=== PATIENT | male | born 1945 | race Caucasian/White ===

== ENCOUNTER 2018-07-24 07:57 | Day surgery (SDC) | payer MEDICARE, OTHER ==
[~2018-07-24 07:57] MED LIST: BRIMONIDINE 0.2% OPHTH DROPS 5 ML ONE; BSS/LIDOCAINE/EPINEPHRINE 1 ML SYRINGE ONE; EPINEPHrine 1 MG/ML AMP ONE; TIMOLOL 0.5% OPHTH DROPS ONE; TRIAMCIN/MOXIFLOX OPHTHALMIC 0.6 ML VIAL IO ONE; VANCOMYCIN OPHTHALMI 8MG/0.8ML 8 MG/0.8 ML SYRINGE IO ONE
[2018-07-24] MEDS ORDERED: KETOROLAC 0.45% OPHTH DROPS ONE (08:05)
[2018-07-24] MEDS ORDERED: PROPARACAINE 0.5% OPHTH DROPS 15 ML ONE (08:06)
[2018-07-24] MEDS: PHENYLEPHRINE 2.5% OPHTH 2 ML DROPS ONE ×3 (08:06→08:20)
[2018-07-24] MEDS: CYCLOPENTOLATE 1% OPHTH DROPS 2 ML ONE ×3 (08:07→08:21)
--- NOTE | 2018-07-24 08:58 | ANESTHESIA ---
Pre-Anesthesia VS, & Labs - Diagnosis senile combined cataract right eye - Procedure cataract extraction with intraocular lens implant right eye Vital Signs: Temp Pulse Resp BP Pulse Ox 36.1 C L 68 14 175/106 H 98 07/24/18 08:05 07/24/18 08:05 07/24/18 08:05 07/24/18 08:05 07/24/18 08:05 Height 5 ft 10 in Weight (kg) 164.7 kg - NPO >8 hours Last Fluid Intake: 0600 H2O Home Medications and Allergies Home Medications: Ambulatory Orders Aspirin [Aspirin EC] 81 mg PO DAILY 07/23/18 Cholecalciferol (Vitamin D3) [Vitamin D] 2,000 unit PO DAILY 07/23/18 Docusate Sodium 100 mg PO BID 07/23/18 Fluticasone/Salmeterol [Advair 250-50 Diskus] 1 each IH BID 07/23/18 Gluc Sanchez Dipo Ch/Martínez Sanchez/C/Wyatt [Glucosamine-Chondroitin Capsul] 1 each PO DAILY 07/23/18 Magnesium 250 mg PO QPM 07/23/18 Multivitamin [Multivitamins] 1 each PO DAILY 07/23/18 Zinc Gluconate [Zinc] 30 mg PO QPM 07/23/18 Carvedilol [Coreg] 12.5 mg PO BID 05/25/13 Losartan [Cozaar] 50 mg PO DAILY 05/25/13 Rosuvastatin Calcium [Crestor] 5 mg PO QPM 05/25/13 Aspirin [Aspirin EC] 81 mg PO DAILY 07/23/18 Cholecalciferol (Vitamin D3) [Vitamin D] 2,000 unit PO DAILY 07/23/18 Docusate Sodium 100 mg PO BID 07/23/18 Fluticasone/Salmeterol [Advair 250-50 Diskus] 1 each IH BID 07/23/18 Gluc Sanchez Dipo Ch/Martínez Sanchez/C/Wyatt [Glucosamine-Chondroitin Capsul] 1 each PO DAILY 07/23/18 Magnesium 250 mg PO QPM 07/23/18 Multivitamin [Multivitamins] 1 each PO DAILY 07/23/18 Zinc Gluconate [Zinc] 30 mg PO QPM 07/23/18 Allergies/Adverse Reactions: Allergies Allergy/AdvReac Type Severity Reaction Status Date / Time CHUCK Inhibitors AdvReac cough Verified 07/23/18 11:39 simvastatin AdvReac muscle Verified 07/23/18 11:40 cramps Anes History & Medical History - Anesthetic History Anesthesia Complications: reports: No previous complications - Medical History Cardiovascular: reports: Hypertension, [place] Pulmonary: reports: Asthma, COPD, Sleep apnea, CPAP use Gastrointestinal: reports: None, Other (super morbid obesity) Urinary: reports: None Neuro: reports: None Musculoskeletal: reports: Osteoarthritis, Chronic back pain Endocrine/Autoimmune: reports: None Skin: reports: Eczema Smoking Status: Former smoker (Quit age 30) Psychosocial: reports: No issues indicated - Surgical History General: Cholecystectomy Eyes Ears Nose Throat (EENT): Tonsil/Adenoidectomy Cardiothoracic: Coronary stent Exam General: Alert, Oriented x3, Cooperative, No acute distress Dental: Poor dentition Mouth Openin Fingerbreadth Neck Mobility: Normal Mallampati classification: II Thyromental Distance: 4-6 cm Respiratory: Lungs clear, Normal breath sounds, No respiratory distress, No accessory muscle use Cardiovascular: Regular rate, Normal S1, Normal S2, No murmurs Mental/Cognitive Status: Alert/Oriented X3, Normal for patient Plan Anesthesia Type: MAC Consent for Procedure(s) Verified and Reviewed: Yes Code Status: Attempt Resuscitation ASA classification: 3-Severe systemic disease Is this case an emergency?: No
[2018-07-24] MEDS ORDERED: LACTATED RINGERS 500 ML IV ONE (09:14)
[2018-07-24] MEDS ORDERED: BRIMONIDINE 0.2% OPHTH DROPS 5 ML OPTH ONE (09:40)
[2018-07-24] MEDS ORDERED: CHONDR SULF/HYALURONATE SYRINGE IO ONE (09:40)
[2018-07-24] MEDS ORDERED: TIMOLOL 0.5% OPHTH DROPS OPTH ONE (09:40)
[2018-07-24] MEDS ORDERED: EPINEPHrine 1 MG/ML AMP IVP ONE (09:40)
[2018-07-24] MEDS ORDERED: TRIAMCIN/MOXIFLOX OPHTHALMIC 0.6 ML VIAL IO ONE (09:40)
[2018-07-24] MEDS ORDERED: VANCOMYCIN OPHTHALMI 8MG/0.8ML 8 MG/0.8 ML SYRINGE IO ONE (09:40)
[2018-07-24] MEDS ORDERED: MIDAZOLAM 2 MG/2 ML VIAL IVP ONE (09:45)
[2018-07-24] MEDS ORDERED: PROPARACAINE 0.5% OPHTH DROPS 15 ML RIGHTEYE ONE (09:55)
[2018-07-24] MEDS ORDERED: BSS/LIDOCAINE/EPINEPHRINE 1 ML SYRINGE IO ONE (09:55)
--- NOTE | 2018-07-24 10:11 | OPERATIVE REPORT ---
DATE OF SERVICE: 07/24/2018 Physician: Shaquille Hannon MD PREOPERATIVE DIAGNOSIS: Visually significant cataract, right eye. This was his first cataract surgery. POSTOPERATIVE DIAGNOSIS: Visually significant cataract, right eye. PROCEDURE: Phacoemulsification with posterior chamber intraocular lens implant, right eye. SURGEON: Dr. Shaquille Hannon. ANESTHESIA: Monitored anesthesia care. COMPLICATIONS: None. OPERATIVE INDICATIONS: This is a 72-year-old man with progressive vision loss in the right eye due t o 2+ nuclear sclerotic and 2 to 3+ posterior subcapsular cataract. Best corrected visual acuity was 20/25 with glare to 20/70 in the right eye. Indications for surgery were difficulty seeing words on a computer screen, difficulty reading small print, difficulty driving in low light or at night, and d ifficulty driving at night because of headlights from other vehicles and/or street lights. He was co nsented at length concerning the risks and benefits of cataract surgery, after which he expressed a d esire to proceed with surgery. OPERATIVE PROCEDURE: Patient was taken into OR #3 and placed under monitored anesthesia care. A marck gical timeout was conducted confirming correct patient, correct procedure, and correct surgical site. He was given topical anesthesia, then prepped and draped in the usual sterile fashion. The eye was entered at the 12 and 9-o'clock positions. Intracameral Shugarcaine was injected into th e anterior chamber, followed by Viscoat. A continuous-tear curvilinear capsulorrhexis was performed. The nucleus was hydrodissected and phacoemulsified. The cortex was evacuated using automated infus ion and aspiration. Provisc was injected in the capsular bag, and an 18.5-diopter intraocular lens i nserted in the bag. Approximately 0.8 mL of a mixture of triamcinolone, moxifloxacin and vancomycin was injected subconjunctivally in the superior quadrant for infection and inflammation prophylaxis. I and A was used to evacuate the viscoelastic materials. The eye was inflated to physiologic pressur e using a balanced salt solution and found to be watertight. Patient was taken from the operating ro om in good condition and given postop instructions. TD: 07/24/2018 10:01
[2018-07-24 10:17] VITALS: BP 143/80
== END 2018-07-24 07:58 | disposition home or self-care (01) ==
LOC: SDS 07:57
PROVIDERS: ATTEND Ophthalmology
PROC: 08RJ3JZ Replacement of Right Lens with Synthetic Substitute, Percutaneous Approach (ICD-10-PCS; principal; 2018-07-24 09:00)
DX: H25.811 Combined forms of age-related cataract, right eye (principal); I10 Essential (primary) hypertension; J44.9 Chronic obstructive pulmonary disease, unspecified; G47.33 Obstructive sleep apnea (adult) (pediatric); E66.01 Morbid (severe) obesity due to excess calories; H34.8112 Central retinal vein occlusion, right eye, stable; H02.836 Dermatochalasis of left eye, unspecified eyelid; H02.833 Dermatochalasis of right eye, unspecified eyelid; G89.29 Other chronic pain; M19.90 Unspecified osteoarthritis, unspecified site; M54.9 Dorsalgia, unspecified; H02.431 Paralytic ptosis of right eyelid; Z79.82 Long term (current) use of aspirin; I25.2 Old myocardial infarction; Z87.891 Personal history of nicotine dependence
CPT/HCPCS: 66984; A9270; J3490; J7120; V2632

== ENCOUNTER 2018-09-25 09:42 | Day surgery (SDC) | payer MEDICARE, OTHER ==
[~2018-09-25 09:42] MED LIST changes: -BRIMONIDINE 0.2% OPHTH DROPS 5 ML ONE; -BSS/LIDOCAINE/EPINEPHRINE 1 ML SYRINGE ONE; +CYCLOPENTOLATE 1% OPHTH DROPS 2 ML ONE; -EPINEPHrine 1 MG/ML AMP ONE; +KETOROLAC 0.45% OPHTH DROPS ONE; +PHENYLEPHRINE 2.5% OPHTH 2 ML DROPS ONE; +PROPARACAINE 0.5% OPHTH DROPS 15 ML ONE; -TIMOLOL 0.5% OPHTH DROPS ONE; -TRIAMCIN/MOXIFLOX OPHTHALMIC 0.6 ML VIAL IO ONE; -VANCOMYCIN OPHTHALMI 8MG/0.8ML 8 MG/0.8 ML SYRINGE IO ONE
[2018-09-25] MEDS ORDERED: LACTATED RINGERS 1,000 ML IV ONE (09:59)
[2018-09-25] MEDS ORDERED: KETOROLAC 0.45% OPHTH DROPS LEFTEYE ONE (10:15)
[2018-09-25] MEDS ORDERED: CYCLOPENTOLATE 1% OPHTH DROPS 2 ML LEFTEYE ONE (10:15)
[2018-09-25] MEDS ORDERED: PROPARACAINE 0.5% OPHTH DROPS 15 ML LEFTEYE ONE (10:15)
[2018-09-25] MEDS ORDERED: PHENYLEPHRINE 2.5% OPHTH 2 ML DROPS LEFTEYE ONE (10:15)
--- NOTE | 2018-09-25 10:23 | ANESTHESIA ---
Pre-Anesthesia VS, & Labs - Diagnosis Left senile combined cataract - Procedure Left phaco with IOL implant Vital Signs: Temp Pulse Resp BP Pulse Ox 36 C L 64 18 169/74 H 96 09/25/18 10:02 09/25/18 10:02 09/25/18 10:02 09/25/18 10:02 09/25/18 10:02 Height 5 ft 10 in Weight (kg) 165 kg - NPO Other (Pills with water at 0700) Home Medications and Allergies Carvedilol [Coreg] 12.5 mg PO BID 05/25/13 Losartan [Cozaar] 50 mg PO DAILY 05/25/13 Rosuvastatin Calcium [Crestor] 5 mg PO QPM 05/25/13 Aspirin [Aspirin EC] 81 mg PO DAILY 07/23/18 Cholecalciferol (Vitamin D3) [Vitamin D] 2,000 unit PO DAILY 07/23/18 Docusate Sodium 100 mg PO BID 07/23/18 Fluticasone/Salmeterol [Advair 250-50 Diskus] 1 each IH BID 07/23/18 Gluc Sanchez Dipo Ch/Martínez Sanchez/C/Wyatt [Glucosamine-Chondroitin Capsul] 1 each PO DAILY 07/23/18 Magnesium 250 mg PO QPM 07/23/18 Multivitamin [Multivitamins] 1 each PO DAILY 07/23/18 Zinc Gluconate [Zinc] 30 mg PO QPM 07/23/18 Allergies/Adverse Reactions: Allergies Allergy/AdvReac Type Severity Reaction Status Date / Time CHUCK Inhibitors AdvReac cough Verified 07/23/18 11:39 simvastatin AdvReac muscle Verified 07/23/18 11:40 cramps Anes History & Medical History - Anesthetic History Anesthesia Complications: reports: No previous complications Family history of Anesthesia Complications: Denies Family history of Malignant Hyperthermia: Denies - Medical History Cardiovascular: reports: Hypertension, [place] Pulmonary: reports: Asthma, COPD, Sleep apnea, CPAP use Gastrointestinal: reports: None, Other Urinary: reports: None Neuro: reports: None Musculoskeletal: reports: Osteoarthritis, Chronic back pain Endocrine/Autoimmune: reports: None Blood Disorders: reports: None Skin: reports: Eczema Smoking Status: Former smoker (Quit age 30) Psychosocial: reports: No issues indicated - Surgical History General: Cholecystectomy Eyes Ears Nose Throat (EENT): Cataracts, Tonsil/Adenoidectomy Cardiothoracic: Coronary stent Exam General: Alert, Oriented x3, Cooperative, No acute distress Dental: WNL Mouth Opening: Greater than 4 Fingerbreadths Neck Mobility: Normal Mallampati classification: II Thyromental Distance: greater than 6 cm Neurological: Normal speech, Other (Right eye droop s/p mastoidectomy) Mental/Cognitive Status: Alert/Oriented X3 Cognitive Status: Within normal limits Plan Anesthesia Type: MAC Consent for Procedure(s) Verified and Reviewed: Yes Code Status: Attempt Resuscitation ASA classification: 3-Severe systemic disease Is this case an emergency?: No
[2018-09-25] MEDS ORDERED: TIMOLOL 0.5% OPHTH DROPS OPTH ONE (11:09)
[2018-09-25] MEDS ORDERED: BRIMONIDINE 0.2% OPHTH DROPS 5 ML OPTH ONE (11:09)
[2018-09-25] MEDS ORDERED: TRIAMCIN/MOXIFLOX OPHTHALMIC 0.6 ML VIAL IO ONE ×2 (11:09)
[2018-09-25] MEDS ORDERED: CHONDR SULF/HYALURONATE SYRINGE IO ONE (11:09)
[2018-09-25] MEDS ORDERED: MIDAZOLAM 2 MG/2 ML VIAL IVP ONE (11:09)
[2018-09-25] MEDS ORDERED: EPINEPHrine 1 MG/ML AMP IVP ONE (11:09)
[2018-09-25] MEDS ORDERED: VANCOMYCIN OPHTHALMI 8MG/0.8ML 8 MG/0.8 ML SYRINGE IO ONE ×2 (11:09)
[2018-09-25] MEDS ORDERED: fentaNYL 100 MCG/2 ML VIAL IVP ONE (11:09)
[2018-09-25] MEDS ORDERED: BSS/LIDOCAINE/EPINEPHRINE 1 ML SYRINGE IO ONE ×2 (11:09)
--- NOTE | 2018-09-25 11:52 | OPERATIVE REPORT ---
DATE OF SERVICE: 09/25/2018 Physician: Shaquille Hannon MD PREOPERATIVE DIAGNOSIS: Visually significant cataract, left eye. Cataract surgery was performed on the right eye on 07/24/2018. POSTOPERATIVE DIAGNOSIS: Visually significant cataract, left eye. Cataract surgery was performed on the right eye on 07/24/2018. PROCEDURE: Phacoemulsification with posterior chamber intraocular lens implant, left eye. SURGEON: Shaquille Hannon MD ANESTHESIA: Monitored anesthesia care. COMPLICATIONS: None. OPERATIVE INDICATIONS: This is a 73-year-old man with progressive vision loss in the left eye due to 2+ nuclear sclerotic and 2+ central posterior subcapsular cataract. Best corrected visual acuity wa s 20/25, with glare to 20/60 in the left eye. Indications for surgery were an overall decrease in vi iqra, difficulty seeing words on a computer screen. He was consented at length concerning risks and benefits of cataract surgery, after which he expressed a desire to proceed with surgery. OPERATIVE PROCEDURE: The patient was taken to OR #3 and placed under monitored anesthesia care. A s urgical timeout was conducted confirming the correct patient, correct procedure, and correct surgical site. He was given topical anesthesia and then prepped and draped in the usual sterile fashion. Th e eye was entered at the 6 and 3 o'clock positions. Intracameral Shugarcaine was injected into the a nterior chamber, followed by Viscoat. A continuous-tear curvilinear capsulorrhexis was performed. T he nucleus was hydrodissected and phacoemulsified. The cortex was evacuated using automated infusion and aspiration. Provisc was injected into the capsular bag, and a 19.5 diopter intraocular lens ins erted in the bag. Approximately 0.8 mL of a mixture of triamcinolone, moxifloxacin, and vancomycin w as injected subconjunctivally in the superior quadrant for infection and inflammation prophylaxis. I and A was used to evacuate the viscoelastic materials. The eye was inflated to physiologic pressure using balanced salt solution and found to be watertight. The patient was taken from the operating r oom in good condition and given postoperative instructions. TD: 09/25/2018 11:42
[2018-09-25 11:54] VITALS: BP 136/75
== END 2018-09-25 09:43 | disposition home or self-care (01) ==
LOC: SDS 09:42
PROVIDERS: ATTEND Ophthalmology
PROC: 08RK3JZ Replacement of Left Lens with Synthetic Substitute, Percutaneous Approach (ICD-10-PCS; principal; 2018-09-25 11:00)
DX: H25.812 Combined forms of age-related cataract, left eye (principal); I10 Essential (primary) hypertension; J44.9 Chronic obstructive pulmonary disease, unspecified; H02.839 Dermatochalasis of unspecified eye, unspecified eyelid; Z79.82 Long term (current) use of aspirin; I25.2 Old myocardial infarction; G47.30 Sleep apnea, unspecified; Z87.891 Personal history of nicotine dependence; Z95.5 Presence of coronary angioplasty implant and graft
CPT/HCPCS: 66984; A9270; J3490; J7120; V2632